=== PATIENT | female | born 1945 | race Caucasian/White ===

== ENCOUNTER 2017-01-28 09:25 | Emergency (ER) | payer OTHER ==
[~2017-01-28 09:25] MED LIST: ASPI81TA28 PO; CALCTAB7 PO; EFFSR75 PO; FISHOIL PO; FLUT50SP14 NAE; GLCSC750600 PO; IBUP-103 PO; IBUP1TAB PO; LORA-741 PO; MULT-513 PO; POTA99TA PO; PRLSR20 PO; ROPI2TAB6 PO; SPCCR30
[2017-01-28 09:33] VITALS: TEMP 36.7; Ht 149.9 cm
[2017-01-28] MEDS ORDERED: DiphenhydrAMINE HCL 50 MG/ML VIAL IV STA (09:41)
[2017-01-28] MEDS ORDERED: PROCHLORPERAZINE 5 MG/ML 2 ML VIAL IV STA (09:41)
[2017-01-28] MEDS ORDERED: METHYLPREDNISOLONE 125 MG VIAL IV STA (09:41)
[2017-01-28] MEDS ORDERED: SODIUM CHLORIDE 0.9% 1000ML 1,000 ML IV STA (09:41)
[2017-01-28 10:04] VITALS: O2SAT 94
[2017-01-28 10:24] LABS: BASO % 0.3 %; BASO ABS # 0.03 K/uL (0-0.2); COMPLETE YES; EOS % 1.5 %; HEMATOCRIT 43.2 % (37-47); IG% 0.3 %; LYMPH ABS # 1.54 K/uL (1.2-3.4); MEAN CELL VOLUME 92.3 fL (80-100); MEAN CORPUSCULAR HEMOGLOBIN 31.8 pg (25-34); MEAN CORPUSCULAR HGB CONC 34.5 g/dl (32-36); MEAN PLATELET VOLUME 10.1 fL (7.4-10.4); MONO % 5.8 %; NEUT % 75.1 %; PLATELET COUNT 240 K/uL (130-400); RED BLOOD COUNT 4.68 M/uL (4.2-5.4); WHITE BLOOD COUNT 9.07 K/uL (4.8-10.8)
--- NOTE | 2017-01-28 10:29 | DIAGNOSTIC IMAGING REPORT ---
CT OF THE HEAD WITHOUT CONTRAST CLINICAL HISTORY: Headache, epistaxis. COMPARISON STUDY: Head CT July 06, 2015. CT DOSE: 537.48 mGy.cm TECHNIQUE: Helical axial images of the head were obtained without IV contrast. Automated exposure control was utilized for the study. FINDINGS: No acute intracranial hemorrhage, midline shift or mass effect is present. Ventricular system is normal. Basilar cisterns are patent. There are no extra-axial collections. There are no findings to suggest acute dural sinus thrombosis or acute territorial infarct. There are no calvarial abnormalities. Visualized portions of the sinuses and the mastoid air cells are clear. IMPRESSION: No acute intracranial findings. Electronically signed by: Sebastien Orellana M.D. 01/28/2017 10:27 AM Dictated Date/Time: 01/28/2017 10:24 AM
[2017-01-28 10:40] LABS: ALT/SGPT 33 U/L (12-78); BLOOD UREA NITROGEN 22 mg/dl (7-18); BUN/CREATININE RATIO 21.7 (10-20); CALCIUM 8.9 mg/dl (8.5-10.1); CARBON DIOXIDE 28 mmol/L (21-32); CHLORIDE 103 mmol/L (98-107); CREATININE 0.99 mg/dl (0.60-1.20); GLUCOSE 129 mg/dl (70-99); MAGNESIUM 2.1 mg/dl (1.8-2.4); SODIUM 142 mmol/L (136-145)
[2017-01-28 10:43] LABS: ALKALINE PHOSPHATASE 71 U/L (45-117); AST/SGOT 19 U/L (15-37)
[2017-01-28] MEDS ORDERED: LORAZEPAM 2 MG/ML 1 ML VIAL IV STA (10:44)
[2017-01-28] MEDS ORDERED: OMEP20TA40 PO (10:47)
[2017-01-28] MEDS ORDERED: FLUT0.15 NAE (10:47)
[2017-01-28] MEDS ORDERED: GLUC1CAP6 PO (10:47)
[2017-01-28] MEDS ORDERED: VENL75CA73 PO (10:47)
[2017-01-28] MEDS ORDERED: ROPINIROLE HCL 5 MG TAB PO STA (11:36)
[2017-01-28 13:22] VITALS: PULSE 86; O2SAT 95
[2017-01-28 13:30] VITALS: BP 168/82
--- NOTE | 2017-01-28 17:12 | EMERGENCY ROOM VISIT NOTE ---
History Report prepared by Dax: Kendal Sweet Under the Supervision of: Dr. Dory Dumont M.D. First contact with patient: 09:38 Chief Complaint: HEADACHE Stated Complaint: VOMITING,HEADACHE,BLOOD NOSE History of Present Illness The patient is a 71 year old female who presents to the Emergency Room with complaints of a persistent headache starting this morning. She got up to adjust her breathing machine when she felt that she had a headache. She has a history of migraine headaches. The headache is present in the back of her head and neck. Her migraine headaches usually present behind her eyes. She reports nausea and sensitivity to light. She has also been experiencing bloody noses for the past couple of weeks. She had never experienced bloody noses previously. She notes that her blood pressure has been more elevated than usual since her nosebleeds started. She had not had issues with hypertension previously. She also had tingling in her arms a couple weeks ago. She denies any fevers. She takes baby aspirin daily and no other blood thinners. She denies any history of diabetes. Source of History: patient Onset: this morning Position: head Quality: ache Timing: other (persistent) Associated Symptoms: + nausea, No fevers Note: Pt reports sensitivity to light and nosebleeds. Review of Systems See HPI for pertinent positives & negatives. A total of 10 systems reviewed and were otherwise negative. Past Medical & Surgical Medical Problems: (1) Acute urinary tract infection (2) Cataract (3) Dyslipidemia (4) Hammer toe (5) Sepsis Family History Cancer Diabetes mellitus Heart disease Social History Smoking Status: Never Smoker Alcohol Use: occasionally Drug Use: none Marital Status: Housing Status: lives with family Occupation Status: retired Current/Historical Medications Scheduled Aspirin (Aspirin Ec), 81 MG PO DAILY Calcium Carbonate-Vitamin D W/ (Caltrate 600 Plus), 1 TAB PO DAILY Econazole Nitrate (Econazole Nitrate Crm 1% 30 Gm), UD Glucosamine-Chondroitin (Glucosamine Chondroitin C), 1 TAB PO DAILY Multivitamins/Minerals (Mvi With Minerals), 1 TAB PO DAILY Omeprazole (Cvs Omeprazole), 20 MG PO DAILY Potassium (Potassium), 99 MG PO DAILY Ropinirole (Requip), 2 MG PO HS Venlafaxine Hcl (Venlafaxine Extended Rel), 75 MG PO QAM Scheduled PRN Lorazepam (Ativan), 0.5 MG PO DAILY PRN for Anxiety Miscellaneous Medications Fluticasone Propionate (Nasal) (Flonase Allergy Relief) Allergies Coded Allergies: Sulfa Drugs (Verified Allergy, Intermediate, RASH, 01/28/17) Penicillins (Verified Allergy, Unknown, WAS TOLD A CHILD, 01/28/17) Sulfamethoxazole w/Trimethoprim (Verified Allergy, Unknown, HIVES, 01/28/17) Prochlorperazine (Verified Adverse Reaction, Intermediate, restless extremities; anxious, 01/28/17) Physical Exam Vital Signs Date Time Temp Pulse Resp B/P Pulse Ox O2 Delivery O2 Flow Rate FiO2 01/28/17 13:30 168/82 01/28/17 13:22 86 20 95 Room Air 01/28/17 11:18 91 15 143/90 95 Room Air 01/28/17 10:32 85 20 145/82 95 Room Air 01/28/17 10:04 94 Room Air 01/28/17 09:33 36.7 98 95 157/76 22 Physical Exam Vital signs reviewed. Noted to be slightly hypertensive. General: Well-appearing, obese, in some discomfort, in no significant distress. HEENT: No scleral icterus, PERRLA, neck supple. Atraumatic. No meningeal signs. Cardiovascular: Regular rate and rhythm, no extra sounds. Pulmonary: Clear to auscultation bilaterally, normal work of breathing. Abdomen: Soft, obese, nontender, nondistended, positive bowel sounds. Musculoskeletal: Atraumatic, no peripheral edema. Neurologic: Patient awake alert and oriented x 3, full strength in all 4 extremities. Cranial nerves 2 through 12 grossly intact. Skin: Warm, dry, no rash Medical Decision & Procedures ER Provider Diagnostic Interpretation: Radiology results as stated below per my review and radiologist interpretation: CT OF THE HEAD WITHOUT CONTRAST CLINICAL HISTORY: Headache, epistaxis. COMPARISON STUDY: Head CT July 06, 2015. CT DOSE: 537.48 mGy.cm TECHNIQUE: Helical axial images of the head were obtained without IV contrast. Automated exposure control was utilized for the study. FINDINGS: No acute intracranial hemorrhage, midline shift or mass effect is present. Ventricular system is normal. Basilar cisterns are patent. There are no extra-axial collections. There are no findings to suggest acute dural sinus thrombosis or acute territorial infarct. There are no calvarial abnormalities. Visualized portions of the sinuses and the mastoid air cells are clear. IMPRESSION: No acute intracranial findings. Electronically signed by: Sebastien Orellana M.D. 01/28/2017 10:27 AM Dictated Date/Time: 01/28/2017 10:24 AM Laboratory Results 01/28/17 09:50 Red Blood Count 4.68, Mean Corpuscular Volume 92.3, Mean Corpuscular Hemoglobin 31.8, Mean Corpuscular Hemoglobin Concent 34.5, Mean Platelet Volume 10.1, Neutrophils (%) (Auto) 75.1, Lymphocytes (%) (Auto) 17.0, Monocytes (%) (Auto) 5.8, Eosinophils (%) (Auto) 1.5, Basophils (%) (Auto) 0.3, Neutrophils # (Auto) 6.80, Lymphocytes # (Auto) 1.54, Monocytes # (Auto) 0.53, Eosinophils # (Auto) 0.14, Basophils # (Auto) 0.03 01/28/17 09:50 Test 01/28/17 09:50 White Blood Count 9.07 K/uL (4.8-10.8) Red Blood Count 4.68 M/uL (4.2-5.4) Hemoglobin 14.9 g/dL (12.0-16.0) Hematocrit 43.2 % (37-47) Mean Corpuscular Volume 92.3 fL (80-100) Mean Corpuscular Hemoglobin 31.8 pg (25-34) Mean Corpuscular Hemoglobin Concent 34.5 g/dl (32-36) Platelet Count 240 K/uL (130-400) Mean Platelet Volume 10.1 fL (7.4-10.4) Neutrophils (%) (Auto) 75.1 % Lymphocytes (%) (Auto) 17.0 % Monocytes (%) (Auto) 5.8 % Eosinophils (%) (Auto) 1.5 % Basophils (%) (Auto) 0.3 % Neutrophils # (Auto) 6.80 K/uL (1.4-6.5) Lymphocytes # (Auto) 1.54 K/uL (1.2-3.4) Monocytes # (Auto) 0.53 K/uL (0.11-0.59) Eosinophils # (Auto) 0.14 K/uL (0-0.5) Basophils # (Auto) 0.03 K/uL (0-0.2) RDW Standard Deviation 46.1 fL (36.4-46.3) RDW Coefficient of Variation 13.6 % (11.5-14.5) Immature Granulocyte % (Auto) 0.3 % Immature Granulocyte # (Auto) 0.03 K/uL (0.00-0.02) Anion Gap 11.0 mmol/L (3-11) Estimated GFR () 66.9 Estimated GFR (Non- 57.7 BUN/Creatinine Ratio 21.7 (10-20) Calcium Level 8.9 mg/dl (8.5-10.1) Magnesium Level 2.1 mg/dl (1.8-2.4) Total Bilirubin 0.5 mg/dl (0.2-1) Direct Bilirubin < 0.1 mg/dl (0-0.2) Aspartate Amino Transf (AST/SGOT) 19 U/L (15-37) Alanine Aminotransferase (ALT/SGPT) 33 U/L (12-78) Alkaline Phosphatase 71 U/L (45-117) Total Protein 7.2 gm/dl (6.4-8.2) Albumin 3.5 gm/dl (3.4-5.0) Laboratory results per my review. Medications Administered Medications (Trade) Dose Ordered Sig/Chica Route Start Time Stop Time Status Last Admin Dose Admin Sodium Chloride (Nss 1000ml) 1,000 ml @ 999 mls/hr Q1H1M STAT IV 01/28/17 09:41 01/28/17 10:41 DC 01/28/17 09:58 999 MLS/HR Prochlorperazine Edisylate (Compazine Inj) 10 mg NOW STAT IV 01/28/17 09:41 01/28/17 09:44 DC 01/28/17 09:59 10 MG Diphenhydramine HCl (Benadryl Inj) 25 mg NOW STAT IV 01/28/17 09:41 01/28/17 09:44 DC 01/28/17 09:58 25 MG Methylprednisolone Sodium Succinate (Solu-Medrol IV) 125 mg NOW STAT IV 01/28/17 09:41 01/28/17 09:44 DC 01/28/17 09:59 125 MG Lorazepam (Ativan Inj) 1 mg NOW STAT IV 01/28/17 10:44 01/28/17 10:45 DC 01/28/17 11:27 1 MG ED Course 0939: Past medical records reviewed. The patient was evaluated in room B10. A complete history and physical examination was performed. 0941: Solu-Medrol IV 125 mg IV, Benadryl Inj 25 mg IV, Compazine Inj 10 mg IV, NSS 1000 ml @ 999 mls/hr IV. 1044: Lorazepam 1 mg IV. 1111: Upon reevaluation, the patient appeared to have improvement of her symptoms. She requested medications for her restless leg syndrome. I discussed findings with her. She verbalized agreement of the treatment plan. She was discharged home. 1136: Requip Tab 5 mg PO. 1205: I reevaluated the patient. She is fairly sedated from the medications administered. She will be observed until she is more clear. Requip was not administered. Medical Decision Differential diagnoses: Intracranial hemorrhage, intracranial mass, migraine headache, tension headache , sinusitis, meningitis This patient was evaluated and appeared to be in no significant distress. IV access was obtained and laboratory work was drawn. Patient was placed on the cardiac cath tech and found to be in normal sinus rhythm. She was hydrated with normal saline solution, given IV Compazine, IV Benadryl and IV Solu-Medrol. The patient was requesting medications for her restless leg syndrome and anxiety. CT scan of the head was performed and is negative for acute intracranial abnormality. Laboratory work is clear. The patient was medicated with 1 mg of Ativan. She had significant improvement in her headache. Patient became somewhat groggy however was able to ambulate without much difficulty. She was discharged in care of her family and will follow-up with her physician this week for reevaluation. She will return to the ER for worsening of symptoms or any medical concerns. Impression Primary Impression: Headache Scribe Attestation The scribe's documentation has been prepared under my direction and personally reviewed by me in its entirety. I confirm that the note above accurately reflects all work, treatment, procedures, and medical decision making performed by me. Departure Information Dispostion Home / Self-Care Referrals Jun Hunter M.D. (PCP) Forms HOME CARE DOCUMENTATION FORM, IMPORTANT VISIT INFORMATION Patient Instructions My [facility] Additional Instructions Diagnosis: Migraine headache Drink plenty of clear fluids. Continue your medications as prescribed. Follow-up with your physician this week for reevaluation. Return to the ER for worsening of symptoms or any medical concerns. Problem Qualifiers Primary Impression: Headache Headache type: unspecified Headache chronicity pattern: acute headache Intractability: not intractable Qualified Codes: R51 - Headache
== END 2017-01-28 13:30 | disposition home or self-care (01) ==
LOC: C.EDB 09:27
DX: R51 Headache (principal); R11.10 Vomiting, unspecified; Z79.82 Long term (current) use of aspirin; Z83.3 Family history of diabetes mellitus

== ENCOUNTER 2017-02-09 12:16 | Emergency (ER) | payer OTHER ==
[~2017-02-09] VITALS: Ht 152.4 cm; Wt 105.2 kg
[~2017-02-09 12:16] MED LIST changes: -EFFSR75 PO; -FISHOIL PO; +FLUT0.15 NAE; -FLUT50SP14 NAE; -GLCSC750600 PO; +GLUC1CAP6 PO; -IBUP-103 PO; -IBUP1TAB PO; +OMEP20TA40 PO; -PRLSR20 PO; +VENL75CA73 PO
[2017-02-09 12:20] VITALS: TEMP 36.8; Ht 152.4 cm; Wt 105.2 kg
[2017-02-09] MEDS ORDERED: CETI10TA84 PO (12:49)
[2017-02-09] MEDS ORDERED: ATRIN INH (12:49)
[2017-02-09] MEDS ORDERED: CLBCRM30 EXT (12:49)
[2017-02-09] MEDS ORDERED: CHOL1000 PO (12:49)
[2017-02-09] MEDS ORDERED: OMEP40CA41 PO (12:49)
--- NOTE | 2017-02-09 13:26 | DIAGNOSTIC IMAGING REPORT ---
CT HEAD WITHOUT CONTRAST (CT) CLINICAL HISTORY: Head pain status post trauma. Patient on aspirin. COMPARISON STUDY: 01/28/2017 TECHNIQUE: Axial CT of the brain is performed from the vertex to the skull base. IV contrast was not administered for this examination. CT DOSE: 537.48 mGy.cm FINDINGS: No intra or extra-axial mass lesions are visualized. There is no CT evidence of acute cortical infarction. There is no evidence of midline shift. There is no acute hemorrhage. No calvarial fractures are visualized. There is no evidence of pathologic ventricular dilatation. There is no evidence of acute sinusitis IMPRESSION: No acute intracranial findings Electronically signed by: Aidan Thompson M.D. 02/09/2017 1:23 PM Dictated Date/Time: 02/09/2017 1:22 PM
--- NOTE | 2017-02-09 13:42 | EMERGENCY ROOM VISIT NOTE ---
ED Visit Note First contact with patient: 12:30 I have seen and examined this patient with Monie Her and generally agree with the treatment plan as discussed. Problem List Medical Problems: (1) Acute urinary tract infection Status: Resolved (2) Cataract Status: Resolved (3) Dyslipidemia Status: Chronic (4) Hammer toe Status: Resolved (5) Sepsis Status: Resolved Current/Historical Medications Scheduled Aspirin (Aspirin Ec), 81 MG PO DAILY Calcium Carbonate-Vitamin D W/ (Caltrate 600 Plus), 1 TAB PO DAILY Cetirizine (Zyrtec), 10 MG PO DAILY Cholecalciferol (Vitamin D3), 1,000 UNITS PO DAILY Clobetasol Propionate (Clobetasol Propionate Cream 0.05%), 1 APPLN EXT TID Glucosamine-Chondroitin (Glucosamine Chondroitin C), 1 TAB PO DAILY Ipratropium Parker (Atrovent Hfa), 2 PUFFS INH QID Multivitamins/Minerals (Mvi With Minerals), 1 TAB PO DAILY Omeprazole (Prilosec), 40 MG PO DAILY Potassium (Potassium), 99 MG PO DAILY Ropinirole (Requip), 2 MG PO HS Venlafaxine Hcl (Venlafaxine Extended Rel), 75 MG PO QAM Scheduled PRN Lorazepam (Ativan), 0.5 MG PO DAILY PRN for Anxiety Miscellaneous Medications Fluticasone Propionate (Nasal) (Flonase Allergy Relief) Allergies Coded Allergies: Sulfa Drugs (Verified Allergy, Intermediate, RASH, 02/09/17) Penicillins (Verified Allergy, Unknown, WAS TOLD A CHILD, 02/09/17) Sulfamethoxazole w/Trimethoprim (Verified Allergy, Unknown, HIVES, 02/09/17 ) Prochlorperazine (Verified Adverse Reaction, Intermediate, restless extremities; anxious, 02/09/17) Vital Signs Date Time Temp Pulse Resp B/P Pulse Ox O2 Delivery O2 Flow Rate FiO2 02/09/17 12:20 36.8 80 16 151/84 98 Room Air Departure Information Referrals Jun Hunter M.D. (PCP) Patient Instructions My [facility]
--- NOTE | 2017-02-09 13:44 | EMERGENCY ROOM VISIT NOTE ---
History First contact with patient: 12:30 Chief Complaint: FALL Stated Complaint: FALL,HEAD INJURY History of Present Illness The patient is a 72 year old female who presents to the Emergency Room with complaints of head injury. The patient states that this morning she had to go the bathroom quickly and tried to get her BiPAP off and she rolled over off the bed and struck the right side of her head on the edge of a gun cabinet. The patient denies any loss of consciousness, dizziness, visual changes, nausea or vomiting. The patient states that she has had an ophthalmology appointment today and while she was there they told her they did not want to dilate her eyes due to the head injury. She then went to her family doctor, Dr. Beck who sent her here for a CAT scan. Review of Systems 10 system review was performed and was negative unless stated otherwise history of present illness. Past Medical/Surgical History Medical Problems: (1) Acute urinary tract infection (2) Cataract (3) Dyslipidemia (4) Hammer toe (5) Sepsis Family History Cancer Diabetes mellitus Heart disease Social History Smoking Status: Never Smoker Alcohol Use: occasionally Drug Use: none Marital Status: Housing Status: lives with family Occupation Status: retired Current/Historical Medications Scheduled Aspirin (Aspirin Ec), 81 MG PO DAILY Calcium Carbonate-Vitamin D W/ (Caltrate 600 Plus), 1 TAB PO DAILY Cetirizine (Zyrtec), 10 MG PO DAILY Cholecalciferol (Vitamin D3), 1,000 UNITS PO DAILY Clobetasol Propionate (Clobetasol Propionate Cream 0.05%), 1 APPLN EXT TID Glucosamine-Chondroitin (Glucosamine Chondroitin C), 1 TAB PO DAILY Ipratropium [place] (Atrovent Hfa), 2 PUFFS INH QID Multivitamins/Minerals (Mvi With Minerals), 1 TAB PO DAILY Omeprazole (Prilosec), 40 MG PO DAILY Potassium (Potassium), 99 MG PO DAILY Ropinirole (Requip), 2 MG PO HS Venlafaxine Hcl (Venlafaxine Extended Rel), 75 MG PO QAM Scheduled PRN Lorazepam (Ativan), 0.5 MG PO DAILY PRN for Anxiety Miscellaneous Medications Fluticasone Propionate (Nasal) (Flonase Allergy Relief) Allergies Coded Allergies: Sulfa Drugs (Verified Allergy, Intermediate, RASH, 02/09/17) Penicillins (Verified Allergy, Unknown, WAS TOLD A CHILD, 02/09/17) Sulfamethoxazole w/Trimethoprim (Verified Allergy, Unknown, HIVES, 02/09/17 ) Prochlorperazine (Verified Adverse Reaction, Intermediate, restless extremities; anxious, 02/09/17) Physical Exam Vital Signs Date Time Temp Pulse Resp B/P Pulse Ox O2 Delivery O2 Flow Rate FiO2 02/09/17 12:20 36.8 80 16 151/84 98 Room Air Physical Exam GENERAL: 72-year-old white female appears in no acute distress. MENTAL STATUS: Alert and oriented 3. HEAD: There is a palpable lump and a 1 cm laceration noted just posterior to the superior aspect of the right ear. There is no active bleeding. The wound looks clean. Remainder of head is unremarkable. EYES: PERRLA. EOMs intact. EARS: Canals clear. TMs without hemotympanum NECK: Supple, no lymphadenopathy noted. No carotid bruits noted. LUNGS: Clear auscultation without wheezes rales or rhonchi. CARDIAC: Regular rate and rhythm without murmur. Pulses is full and equal throughout. NEURO:Cranial nerves two through 12 intact. Cerebellar function intact with [id number]. Fine motor intact with alternating finger motions. Medical Decision & Procedures ER Provider Diagnostic Interpretation: CT HEAD WITHOUT CONTRAST (CT) CLINICAL HISTORY: Head pain status post trauma. Patient on aspirin. COMPARISON STUDY: 01/28/2017 TECHNIQUE: Axial CT of the brain is performed from the vertex to the skull base. IV contrast was not administered for this examination. CT DOSE: 537.48 mGy.cm FINDINGS: No intra or extra-axial mass lesions are visualized. There is no CT evidence of acute cortical infarction. There is no evidence of midline shift. There is no acute hemorrhage. No calvarial fractures are visualized. There is no evidence of pathologic ventricular dilatation. There is no evidence of acute sinusitis IMPRESSION: No acute intracranial findings Electronically signed by: Aidan Thompson M.D. 02/09/2017 1:23 PM ED Course The patient was evaluated. The patient was given Tylenol 1 g by mouth for headache. The wound was cleansed with saline and antibiotic ointment applied. The patient did not want the wound closed with sutures or suarj. CT the head was ordered and interpreted by the radiologist as above without any acute findings. The patient was informed of the findings. Patient was independently evaluated by Dr. Atkinson who agrees with treatment plan. The patient was discharged home in stable condition. Medical Decision Differential diagnosis include intercranial bleed, subdural hematoma, head contusion, subarachnoid hemorrhage Impression Primary Impression: Head contusion Departure Information Dispostion Home / Self-Care Condition GOOD Referrals Jun Hunter M.D. (PCP) Forms HOME CARE DOCUMENTATION FORM, IMPORTANT VISIT INFORMATION Patient Instructions ED Head Injury Closed, [facility] Additional Instructions Read head injury handout instructions. Any problems return to ER. Tylenol as needed for headache. Antibiotic ointment on the wound for 3 days. Any signs of infection, follow-up with family physician. Problem Qualifiers Primary Impression: Head contusion Encounter type: initial encounter Contusion of head detail: scalp Qualified Codes: S00.03XA - Contusion of scalp, initial encounter
[2017-02-09 13:48] VITALS: BP 142/88; PULSE 79; O2SAT 97
== END 2017-02-09 13:50 | disposition home or self-care (01) ==
LOC: C.EDB 12:17 → C.EDD 13:50
DX: S00.03XA Contusion of scalp, initial encounter (principal); E78.5 Hyperlipidemia, unspecified; Z79.82 Long term (current) use of aspirin; Z79.899 Other long term (current) drug therapy; Z86.19 Personal history of other infectious and parasitic diseases; Z82.49 Family history of ischemic heart disease and other diseases of the circulatory system; Z83.3 Family history of diabetes mellitus; W22.03XA Walked into furniture, initial encounter; Y92.003 Bedroom of unspecified non-institutional (private) residence as the place of occurrence of the external cause

== ENCOUNTER → 2017-02-21 | Outpatient (CLI) | payer OTHER ==
[~2017-02-21] MED LIST changes: +ATRIN INH; +CETI10TA84 PO; +CHOL1000 PO; +CLBCRM30 EXT; +EPIN1DRO OPB; -OMEP20TA40 PO; +OMEP40CA41 PO; -SPCCR30
--- NOTE | 2017-02-21 15:49 | MAMMOGRAPHY REPORT ---
BILATERAL DIGITAL SCREENING MAMMOGRAM WITH CAD: 02/21/2017 CLINICAL HISTORY: Routine screening. Patient has no complaints. TECHNIQUE: Current study was also evaluated with a Computer Aided Detection (CAD) system. Bilatera l CC and MLO views were obtained. COMPARISON: Comparison is made to exams dated: 02/18/2016 mammogram, 02/17/2015 mammogram, 02/16/2014 mammogram, 02/13/2013 mammogram, 10/30/2011 mammogram, and 10/28/2010 mammogram - [facility] enter. BREAST COMPOSITION: The tissue of both breasts is almost entirely fatty. FINDINGS: No suspicious masses, calcifications, or areas of architectural distortion are noted in e ither breast. There has been no significant interval change compared to prior exams. IMPRESSION: ACR BI-RADS CATEGORY 1: NEGATIVE There is no mammographic evidence of malignancy. A 1 year screening mammogram is recommended. The p atient will receive written notification of the results. Approximately 10% of breast cancers are not detected with mammography. A negative mammographic repor t should not delay biopsy if a clinically suggestive mass is present. Danielle Martinez M.D. /:02/21/2017 14:33:59 Process Excellence Manager: Primo TARANGO(Bora)(Carlita), [facility] letter sent: Normal 1/2 BI-RADS Code: ACR BI-RADS Category 1: Negative
== END | disposition home or self-care (01) ==
LOC: C.MAMM 10:47
PROVIDERS: ATTEND Obstetrics & Gynecology
DX: Z12.31 Encounter for screening mammogram for malignant neoplasm of breast (principal)

== ENCOUNTER 2017-03-26 13:02 | Emergency (ER) | payer OTHER ==
[~2017-03-26] VITALS: Ht 147.3 cm; Wt 105.0 kg
[~2017-03-26 13:02] MED LIST changes: -EPIN1DRO OPB
[2017-03-26 13:04] VITALS: TEMP 36.7; Ht 147.3 cm; Wt 105.0 kg
[2017-03-26 14:09] LABS: BASO % 0.5 %; BASO ABS # 0.05 K/uL (0-0.2); COMPLETE YES; EOS % 1.5 %; HEMATOCRIT 43.4 % (37-47); IG% 0.2 %; LYMPH % 26.4 %; LYMPH ABS # 2.89 K/uL (1.2-3.4); MEAN CELL VOLUME 92.9 fL (80-100); MEAN CORPUSCULAR HEMOGLOBIN 30.2 pg (25-34); MEAN CORPUSCULAR HGB CONC 32.5 g/dl (32-36); MONO % 8.1 %; NEUT % 63.3 %; PLATELET COUNT 285 K/uL (130-400); RED BLOOD COUNT 4.67 M/uL (4.2-5.4); WHITE BLOOD COUNT 10.95 K/uL (4.8-10.8)
[2017-03-26 14:32] LABS: AST/SGOT 16 U/L (15-37); BLOOD UREA NITROGEN 21 mg/dl (7-18); BUN/CREATININE RATIO 18.6 (10-20); CALCIUM 8.8 mg/dl (8.5-10.1); CARBON DIOXIDE 28 mmol/L (21-32); CHLORIDE 103 mmol/L (98-107); GLUCOSE 137 mg/dl (70-99); POTASSIUM 3.8 mmol/L (3.5-5.1); SODIUM 139 mmol/L (136-145)
[2017-03-26 14:37] LABS: ALKALINE PHOSPHATASE 76 U/L (45-117); ALT/SGPT 36 U/L (12-78)
[2017-03-26] MEDS ORDERED: OPTIRAY 320 IV PRN (14:45)
[2017-03-26 15:05] LABS: URINE APPEARANCE CLEAR (CLEAR); URINE BILIRUBIN NEG (NEG); URINE COLOR YELLOW; URINE NITRITE NEG (NEG); URINE SPECIFIC GRAVITY 1.013 (1.000-1.030); UROBILINOGEN NEG (NEG); ZZUR CULT IF INDIC CLEAN CATCH NO
[2017-03-26 15:15] LABS: MANUAL MICROSCOPIC REQUIRED? NO; REVIEW REQ? NO
[2017-03-26] MEDS ORDERED: EPIN1DRO OPB (15:15)
--- NOTE | 2017-03-26 15:24 | DIAGNOSTIC IMAGING REPORT ---
CT ANGIOGRAM OF THE CHEST CLINICAL HISTORY: Right-sided pleuritic chest pain. COMPARISON STUDY: Chest CT dated 07/06/2015. TECHNIQUE: Following the IV administration of 93 cc of Optiray 320, CT angiogram of the chest was performed from the upper abdomen to the thoracic inlet utilizing the pulmonary embolus protocol. Images are reviewed in the axial, sagittal, and coronal planes. 3-D MIPS images are created and assessed. IV contrast was administered without complication. CT DOSE: 488.41 mGycm FINDINGS: Thyroid: Imaged portions of the thyroid gland are normal in size and attenuation. Thoracic aorta: There are scattered foci of atherosclerotic calcification identified. The thoracic aorta is normal in caliber and demonstrates bovine variant arch anatomy. No dissection is seen. Pulmonary vasculature: The pulmonary trunk is normal in caliber. There are no filling defects identified in main, lobar, or segmental pulmonary branches to suggest pulmonary embolus. Heart: The heart is normal in size and configuration, and without pericardial effusion. There are coronary artery calcifications. Lungs and pleural spaces: Evaluation of the lung parenchyma is modestly degraded by respiratory motion artifact. No airspace consolidation or pleural effusion is seen. There is dependent atelectasis. The trachea and central airways are clear. Mediastinum: There is no mediastinal lymphadenopathy. Smiley: Clear. Axillae: There is no axillary lymphadenopathy. Upper abdomen: The liver is enlarged and steatotic. Cholecystectomy clips are observed. There is a tiny hiatal hernia. Skeletal structures: The skeletal structures are osteopenic. Degenerative change is seen throughout the thoracic spine. No lytic or blastic bony lesions are seen. IMPRESSION: 1. There is no evidence of pulmonary embolus in the main, lobar, or segmental pulmonary arteries. 2. There is no airspace consolidation or pleural effusion. 3. Hepatomegaly and hepatic steatosis. Electronically signed by: Dallin Grimm M.D. 03/26/2017 3:23 PM Dictated Date/Time: 03/26/2017 3:18 PM
[2017-03-26 15:55] VITALS: BP 117/57; PULSE 75; O2SAT 99
--- NOTE | 2017-03-26 20:35 | EMERGENCY ROOM VISIT NOTE ---
History Report prepared by Dax: Emelina Slade Under the Supervision of: Dr. Momo Gomes D.O. First contact with patient: 13:27 Chief Complaint: FLANK PAIN Stated Complaint: PAIN IN RIGHT SIDE/BACK History of Present Illness The patient is a 72 year old female who presents to the Emergency Room with complaints of worsening right lateral chest pain that started 3 days ago. The pain radiates from her back into her right side. The pain is worse with turning to the right side or moving her right arm. The patient states that she went camping in [facility] for one week prior to the pain starting. She states that she was not doing anything more exertional than she normally would when she goes camping. She is also experiencing shortness of breath with the pain. Additionally, she is experiencing intermittent lightheadedness that does not seem to be correlated to the pain. She states that she started to experience a dry cough and sneezing after the pain started. The patient denies abdominal pain , nausea, vomiting, diarrhea, pain or burning with urination. She states that she experienced edema in her feet over the weekend. The patient adds that she noticed a tick on her right side under her breast that they removed. She thinks that the tick was on for less than 24 hours. The patient denies any history of blood clots or any recent surgeries. Source of History: patient Onset: 3 days ago Position: chest (right lateral) Quality: other (right lateral chest pain) Timing: worsening Modifying Factors (Worsening): movement (turning to the right side, moving right arm) Associated Symptoms: + SOB, No nausea, No vomiting, No abdominal pain, No diarrhea, No urinary symptoms (pain or burning with urination) Note: lightheadedness, bilateral pedal edema Review of Systems See HPI for pertinent positives & negatives. A total of 10 systems reviewed and were otherwise negative. Past Medical & Surgical Medical Problems: (1) Acute urinary tract infection (2) Cataract (3) Dyslipidemia (4) Hammer toe (5) Sepsis Family History Cancer Diabetes mellitus Heart disease Social History Smoking Status: Never Smoker Alcohol Use: occasionally Drug Use: none Marital Status: Housing Status: lives with family Occupation Status: retired Current/Historical Medications Scheduled Aspirin (Aspirin Ec), 81 MG PO DAILY Calcium Carbonate-Vitamin D W/ (Caltrate 600 Plus), 1 TAB PO DAILY Cetirizine (Zyrtec), 10 MG PO DAILY Cholecalciferol (Vitamin D3), 1,000 UNITS PO DAILY Clobetasol Propionate (Clobetasol Propionate Cream 0.05%), 1 APPLN EXT TID Epinastine Hcl (Ophth) (Epinastine Hcl), 1 DROP OPB BID Fluticasone Propionate (Nasal) (Flonase Allergy Relief), 2 SPRAYS KIRTI BID Multivitamins/Minerals (Mvi With Minerals), 1 TAB PO DAILY Omeprazole (Prilosec), 40 MG PO DAILY Potassium (Potassium), 99 MG PO DAILY Ropinirole (Requip), 2 MG PO HS Venlafaxine Hcl (Venlafaxine Extended Rel), 75 MG PO QAM Scheduled PRN Lorazepam (Ativan), 0.5 MG PO DAILY PRN for Anxiety Allergies Coded Allergies: Sulfa Drugs (Verified Allergy, Intermediate, RASH, 03/26/17) Penicillins (Verified Allergy, Unknown, WAS TOLD A CHILD, 03/26/17) Sulfamethoxazole w/Trimethoprim (Verified Allergy, Unknown, HIVES, 03/26/17) Prochlorperazine (Verified Adverse Reaction, Intermediate, restless extremities; anxious, 03/26/17) Physical Exam Vital Signs Date Time Temp Pulse Resp B/P (MAP) Pulse Ox O2 Delivery O2 Flow Rate FiO2 03/26/17 15:55 75 16 117/57 99 03/26/17 14:36 74 20 120/62 98 Room Air 03/26/17 13:04 36.7 97 20 147/80 97 Room Air Physical Exam GENERAL: alert, sitting up in bed, well appearing, well nourished, mild distress , holding right ribs, non-toxic EYE EXAM: normal conjunctiva OROPHARYNX: no exudate, no erythema, lips, buccal mucosa, and tongue normal and mucous membranes are moist NECK: supple, no nuchal rigidity, no adenopathy, non-tender CHEST: Acute reproducible tenderness over the right chest wall from midaxillary line tracking to midthoracic paraspinal region that is worse with twisting, turning, or bending. LUNGS: Clear to auscultation. Normal chest wall mechanics HEART: no murmurs, S1 normal and S2 normal ABDOMEN: abdomen soft, non-tender, normo-active bowel sounds, no masses, no rebound or guarding. BACK: Back is symmetrical on inspection and there is no deformity, no midline tenderness, no CVA tenderness. SKIN: no rashes and no bruising UPPER EXTREMITIES: upper extremities are grossly normal. LOWER EXTREMITIES: No pitting edema, calves equal bilaterally. NEURO EXAM: Normal sensorium, cranial nerves II-XII grossly intact, normal speech, no gross weakness of arms, no gross weakness of legs. Medical Decision & Procedures ER Provider Diagnostic Interpretation: Radiology results as stated below per my review and the radiologist's interpretation: CT ANGIOGRAM OF THE CHEST FINDINGS: Thyroid: Imaged portions of the thyroid gland are normal in size and attenuation. Thoracic aorta: There are scattered foci of atherosclerotic calcification identified. The thoracic aorta is normal in caliber and demonstrates bovine variant arch anatomy. No dissection is seen. Pulmonary vasculature: The pulmonary trunk is normal in caliber. There are no filling defects identified in main, lobar, or segmental pulmonary branches to suggest pulmonary embolus. Heart: The heart is normal in size and configuration, and without pericardial effusion. There are coronary artery calcifications. Lungs and pleural spaces: Evaluation of the lung parenchyma is modestly degraded by respiratory motion artifact. No airspace consolidation or pleural effusion is seen. There is dependent atelectasis. The trachea and central airways are clear. Mediastinum: There is no mediastinal lymphadenopathy. Smiley: Clear. Axillae: There is no axillary lymphadenopathy. Upper abdomen: The liver is enlarged and steatotic. Cholecystectomy clips are observed. There is a tiny hiatal hernia. Skeletal structures: The skeletal structures are osteopenic. Degenerative change is seen throughout the thoracic spine. No lytic or blastic bony lesions are seen. IMPRESSION: 1. There is no evidence of pulmonary embolus in the main, lobar, or segmental pulmonary arteries. 2. There is no airspace consolidation or pleural effusion. 3. Hepatomegaly and hepatic steatosis. Electronically signed by: Dallin Grimm M.D. 03/26/2017 3:23 PM Dictated Date/Time: 03/26/2017 3:18 PM Laboratory Results 03/26/17 13:34 Red Blood Count 4.67, Mean Corpuscular Volume 92.9, Mean Corpuscular Hemoglobin 30.2, Mean Corpuscular Hemoglobin Concent 32.5, Mean Platelet Volume 10.0, Neutrophils (%) (Auto) 63.3, Lymphocytes (%) (Auto) 26.4, Monocytes (%) (Auto) 8.1, Eosinophils (%) (Auto) 1.5, Basophils (%) (Auto) 0.5, Neutrophils # (Auto) 6.94, Lymphocytes # (Auto) 2.89, Monocytes # (Auto) 0.89, Eosinophils # (Auto) 0.16, Basophils # (Auto) 0.05 03/26/17 13:34 Test 03/26/17 13:34 03/26/17 14:30 White Blood Count 10.95 K/uL (4.8-10.8) Red Blood Count 4.67 M/uL (4.2-5.4) Hemoglobin 14.1 g/dL (12.0-16.0) Hematocrit 43.4 % (37-47) Mean Corpuscular Volume 92.9 fL (80-100) Mean Corpuscular Hemoglobin 30.2 pg (25-34) Mean Corpuscular Hemoglobin Concent 32.5 g/dl (32-36) Platelet Count 285 K/uL (130-400) Mean Platelet Volume 10.0 fL (7.4-10.4) Neutrophils (%) (Auto) 63.3 % Lymphocytes (%) (Auto) 26.4 % Monocytes (%) (Auto) 8.1 % Eosinophils (%) (Auto) 1.5 % Basophils (%) (Auto) 0.5 % Neutrophils # (Auto) 6.94 K/uL (1.4-6.5) Lymphocytes # (Auto) 2.89 K/uL (1.2-3.4) Monocytes # (Auto) 0.89 K/uL (0.11-0.59) Eosinophils # (Auto) 0.16 K/uL (0-0.5) Basophils # (Auto) 0.05 K/uL (0-0.2) RDW Standard Deviation 46.8 fL (36.4-46.3) RDW Coefficient of Variation 13.7 % (11.5-14.5) Immature Granulocyte % (Auto) 0.2 % Immature Granulocyte # (Auto) 0.02 K/uL (0.00-0.02) D-Dimer 650 ug/L FEU (0-500) Anion Gap 8.0 mmol/L (3-11) Est Creatinine Clear Calc Drug Dose 49.3 ml/min Estimated GFR () 58.5 Estimated GFR (Non- 50.5 BUN/Creatinine Ratio 18.6 (10-20) Calcium Level 8.8 mg/dl (8.5-10.1) Total Bilirubin 0.6 mg/dl (0.2-1) Direct Bilirubin < 0.1 mg/dl (0-0.2) Aspartate Amino Transf (AST/SGOT) 16 U/L (15-37) Alanine Aminotransferase (ALT/SGPT) 36 U/L (12-78) Alkaline Phosphatase 76 U/L (45-117) Troponin I < 0.015 ng/ml (0-0.045) Total Protein 7.7 gm/dl (6.4-8.2) Albumin 3.8 gm/dl (3.4-5.0) Lipase 249 U/L (73-393) Urine Color YELLOW Urine Appearance CLEAR (CLEAR) Urine pH 7.0 (4.5-7.5) Urine Specific [place] 1.013 (1.000-1.030) Urine Protein NEG (NEG) Urine Glucose (UA) NEG (NEG) Urine Ketones NEG (NEG) Urine Occult Blood NEG (NEG) Urine Nitrite NEG (NEG) Urine Bilirubin NEG (NEG) Urine Urobilinogen NEG (NEG) Urine Leukocyte Esterase TRACE (NEG) Urine WBC (Auto) 1-5 /hpf (0-5) Urine RBC (Auto) 0-4 /hpf (0-4) Urine Hyaline Casts (Auto) 0 /lpf (0-5) Urine Epithelial Cells (Auto) 5-10 /lpf (0-5) Urine Bacteria (Auto) NEG (NEG) Laboratory results per my review. ECG Indication: chest pain Rate (beats per minute): 76 Rhythm: sinus rhythm Findings: no ectopy, other (normal axis) ED Course ED COURSE: Vital signs were reviewed and showed hypertension. The patients medical record was reviewed The above diagnostic studies were performed and reviewed. ED treatments and interventions as stated above. 1342: The patient was evaluated in room B8. A complete history and physical examination was performed. 1442: I reassessed the patient. She is going over for her CT scan. 1530: Upon reevaluation, the patient is doing well. I discussed my findings with the patient and she understands and agrees with the treatment plan. Based on the patients age, coexisting illnesses, exam and lab findings the decision to treat as an outpatient was made. The patient remained stable while under my care. The patient appeared well at the time of discharge. Medical Decision Differential diagnoses includes but is not limited to acute coronary syndrome, myocardial infarction, pericarditis, pulmonary embolus, aortic dissection, pneumonia, pneumothorax, musculoskeletal, shingles, esophageal. Medication Reconciliation: I attest that I have personally reviewed the patient' s current medication list. Blood pressure screening: Patient was found to have an elevated blood pressure and was referred to their primary doctor for recheck and further treatment. Patient is a 72-year-old female who presents the ER for right sided chest pain which is pleuritic in nature and clearly reproducible. Vitals are unremarkable. Pain is worse with twisting turning or bending. CBC along with BMP, LFTs, bilirubin and troponin were unremarkable. D-dimer was elevated. UA was unremarkable. CT PE was performed and shows no pulmonary infarcts, no pneumothorax, no pneumonia, or no rib fractures. I do favor this is likely a muscular strain. EKG was unremarkable. Troponin was negative following pain that has been present greater than 8 hours. Patient declined any pain medications and was discharged with muscle skeletal right chest wall pain. Impression Primary Impression: Right flank pain Scribe Attestation The scribe's documentation has been prepared under my direction and personally reviewed by me in its entirety. I confirm that the note above accurately reflects all work, treatment, procedures, and medical decision making performed by me. Departure Information Dispostion Home / Self-Care Referrals Jun Hunter M.D. (PCP) Forms HOME CARE DOCUMENTATION FORM, IMPORTANT VISIT INFORMATION Patient Instructions ED Contusion Vs Minor Fx Rib, My [facility] Additional Instructions Please follow up with your primary care doctor with in the next 24 hours. Any worsening of your symptoms, please return to the ED immediately. This includes fevers greater than 100.4, new or worsening chest pain, shortness of breath, passing out, or any other concerning signs or symptoms from your standpoint. Please take Motrin or Tylenol as needed for your pain.
== END 2017-03-26 15:57 | disposition home or self-care (01) ==
LOC: C.EDB 13:03
DX: R10.30 Lower abdominal pain, unspecified (principal); E78.5 Hyperlipidemia, unspecified; Z86.19 Personal history of other infectious and parasitic diseases; Z87.440 Personal history of urinary (tract) infections; Z98.49 Cataract extraction status, unspecified eye; Z79.82 Long term (current) use of aspirin; Z79.899 Other long term (current) drug therapy; Z88.0 Allergy status to penicillin; Z88.2 Allergy status to sulfonamides; Z88.8 Allergy status to other drugs, medicaments and biological substances; Z80.9 Family history of malignant neoplasm, unspecified; Z83.3 Family history of diabetes mellitus; Z82.49 Family history of ischemic heart disease and other diseases of the circulatory system

== ENCOUNTER → 2017-04-16 | Outpatient (CLI) | payer OTHER ==
[~2017-04-16] MED LIST changes: -ATRIN INH; +EPIN1DRO OPB; -GLUC1CAP6 PO
--- NOTE | 2017-04-16 11:13 | DIAGNOSTIC IMAGING REPORT ---
ABDOMEN COMPLETE (US) CLINICAL HISTORY: Abdominal pain. COMPARISON STUDY: CT of the abdomen February 08, 2010 and renal ultrasound August 07, 2011. FINDINGS: Hepatic echogenicity is increased. No hepatic lesions are present. There is no biliary ductal dilatation status post cholecystectomy. The common bile duct measures 6 mm in caliber. The pancreatic body is normal. The head and tail are obscured. The size of the spleen is normal. The right kidney measures 9.4 cm and the left measures 9.9 cm. There is no hydronephrosis. The caliber of the abdominal aorta is normal. IMPRESSION: 1. Fatty infiltration of the liver. 2. No biliary ductal dilatation status post cholecystectomy. 3. Partially obscured pancreas. Electronically signed by: Sebastien Orellana M.D. 04/16/2017 11:11 AM Dictated Date/Time: 04/16/2017 11:10 AM
== END | disposition home or self-care (01) ==
LOC: C.ULTRBC 10:00
PROVIDERS: ATTEND Physician Assistant Medical
DX: R10.9 Unspecified abdominal pain (principal); K76.0 Fatty (change of) liver, not elsewhere classified; Z90.49 Acquired absence of other specified parts of digestive tract

== ENCOUNTER → 2017-04-30 | Outpatient (CLI) | payer OTHER ==
--- NOTE | 2017-04-30 13:30 | DIAGNOSTIC IMAGING REPORT ---
ULTRASOUND RIGHT LOWER EXTREMITY VENOUS CLINICAL HISTORY: Right leg pain. COMPARISON STUDY: No priors. TECHNIQUE: Real-time, grayscale, and color Doppler sonography of the deep veins of the right lower extremity was performed from the inguinal crease to the calf. Compression and augmentation were utilized. FINDINGS: There is no sonographic evidence of deep venous thrombosis identified in the right lower extremity. The common femoral, superficial femoral, and popliteal veins are patent and normally compressible. The greater saphenous vein and the profunda femoris vein at the junction with the common femoral vein are clear. The visualized calf veins are patent. There is a thrombosed superficial vein identified in the right thigh at the indicated site of interest. IMPRESSION: 1. There is no sonographic evidence of deep venous thrombosis identified in the right lower extremity. 2. There is a thrombosed superficial vein identified in the thigh at the indicated site of interest. Electronically signed by: Dallin Grimm M.D. 04/30/2017 1:29 PM Dictated Date/Time: 04/30/2017 1:28 PM
== END | disposition home or self-care (01) ==
LOC: C.ULTRBC 13:00
PROVIDERS: ATTEND Physician Assistant
DX: M79.604 Pain in right leg (principal); I82.811 Embolism and thrombosis of superficial veins of right lower extremity

== ENCOUNTER → 2017-08-30 | Outpatient (CLI) | payer OTHER ==
[~2017-08-30] MED LIST changes: +GADAVIST IV PRN
--- NOTE | 2017-08-30 20:52 | DIAGNOSTIC IMAGING REPORT ---
BRAIN COMBO CLINICAL HISTORY: 72 years-old Female presenting with mild concavity of impairment, headaches, fell and hit head February 08, 2017, laceration behind the right ear, no history of cancer or prior surgery. TECHNIQUE: Multisequence, multiplanar MR imaging of the brain was performed before and after the administration of intravenous contrast. IV contrast: 10 mL of Gadavist. COMPARISON: None. FINDINGS: Ventricles and sulci normal in size. Periventricular and subcortical white matter T2/FLAIR hyperintensity, nonspecific but likely indicative of chronic small vessel ischemic change. No mass effect or midline shift. No restricted diffusion to suggest acute ischemia. No hemorrhage. No extra-axial fluid collection. T2 skull base flow voids preserved. No abnormal parenchymal enhancement. Bone marrow signal intensity within the calvarium within normal limits. Bilateral navajo lenses are absent. IMPRESSION: 1. Chronic small vessel ischemic change. No acute intracranial abnormality. No abnormal enhancement. Electronically signed by: Tyrone Allen M.D. 08/30/2017 8:50 PM Dictated Date/Time: 08/30/2017 8:44 PM
== END | disposition home or self-care (01) ==
LOC: C.MRI 19:20
PROVIDERS: ATTEND Internal Medicine Geriatric Medicine
DX: G31.84 Mild cognitive impairment of uncertain or unknown etiology (principal); I67.82 Cerebral ischemia

== ENCOUNTER → 2018-02-18 | Outpatient (CLI) | payer OTHER ==
[~2018-02-18] MED LIST changes: -GADAVIST IV PRN
[2018-02-18 15:31] LABS: ALBUMIN 3.7 gm/dl (3.4-5.0); ALT/SGPT 34 U/L (12-78); AST/SGOT 21 U/L (15-37); BLOOD UREA NITROGEN 20 mg/dl (7-18); CALCIUM 8.9 mg/dl (8.5-10.1); CARBON DIOXIDE 27 mmol/L (21-32); CREATININE 1.08 mg/dl (0.60-1.20); GLUCOSE 97 mg/dl (70-99); POTASSIUM 4.4 mmol/L (3.5-5.1); SODIUM 136 mmol/L (136-145)
[2018-02-18 15:42] LABS: ALKALINE PHOSPHATASE 72 U/L (45-117); CHOLESTEROL 132 mg/dl (0-200); LDL CHOLESTEROL CALCULATED 70 mg/dl; TOTAL PROTEIN 7.5 gm/dl (6.4-8.2)
== END | disposition home or self-care (01) ==
LOC: C.LABBC 10:05
PROVIDERS: ATTEND Internal Medicine Geriatric Medicine
DX: G47.30 Sleep apnea, unspecified (principal); G25.81 Restless legs syndrome; K76.0 Fatty (change of) liver, not elsewhere classified; E78.5 Hyperlipidemia, unspecified; G43.909 Migraine, unspecified, not intractable, without status migrainosus; M19.90 Unspecified osteoarthritis, unspecified site

== ENCOUNTER → 2018-02-27 | Outpatient (CLI) | payer OTHER ==
--- NOTE | 2018-02-27 15:06 | MAMMOGRAPHY REPORT ---
BILATERAL DIGITAL SCREENING MAMMOGRAM TOMOSYNTHESIS WITH CAD: 02/27/2018 CLINICAL HISTORY: Routine screening. Patient has no complaints. TECHNIQUE: Breast tomosynthesis in addition to standard 2D mammography was performed. Current study was also evaluated with a Computer Aided Detection (CAD) system. COMPARISON: Comparison is made to exams dated: 02/18/2016 mammogram, 02/17/2015 mammogram, 02/16/2014 m ammogram, 02/13/2013 mammogram, 10/30/2011 mammogram, and 11/02/2010 ultrasound - [facility] enter. BREAST COMPOSITION: There are scattered areas of fibroglandular density in both breasts. FINDINGS: No suspicious masses, calcifications, or areas of architectural distortion are noted in ei ther breast. There has been no significant interval change compared to prior exams. IMPRESSION: ACR BI-RADS CATEGORY 1: NEGATIVE There is no mammographic evidence of malignancy. A 1 year screening mammogram is recommended. The pa tient will receive written notification of the results. Approximately 10% of breast cancers are not detected with mammography. A negative mammographic report should not delay biopsy if a clinically suggestive mass is present. Danielle Martinez M.D. ah/:02/27/2018 12:08:44 [place] Supervisor: Roopa TARANGO(Bora)(Carlita), [facility] letter sent: Normal 1/2 BI-RADS Code: ACR BI-RADS Category 1: Negative
== END | disposition home or self-care (01) ==
LOC: C.MAMM 10:27
PROVIDERS: ATTEND Obstetrics & Gynecology
DX: Z12.31 Encounter for screening mammogram for malignant neoplasm of breast (principal)